=== PATIENT | female | born 1980 | race African-American/Black ===

== ENCOUNTER → 2020-01-02 | Outpatient (CLI) | payer OTHER ==
[~2020-01-02] MED LIST: ABILIFY15 MG PO; AMBIEN5 MG PO; DECADRON4 MG PO; NORVASC 2.5 MG2.5 M1 PO; PROAIR HFA8.5 GM INH; PROTONIX 20 MG20 MG PO; TOPAMAX100 MG PO; XANAX 0.5 MG0.5 M1 PO
[2020-01-02 15:41] LABS: BASOPHILS 1.1 % (0.0-2.0); LYMPHOCYTES 38.3 % (24.0-44.0); MCH 28.8 pg (26.0-34.0); MCHC 33.3 g/dL (28.0-37.0); MCV 86.4 fL (80.0-100.0); MONOCYTES 7.8 % (1.0-8.0); PLATELET COUNT 395 thou/uL (150-400); POLYS 49.8 % (36.0-66.0); RBC 3.82 mil/uL (4.20-5.00); RDW 14.9 % (10.5-14.5)
[2020-01-02 16:05] LABS: ALBUMIN 3.5 g/dL (3.4-5.0); ANION GAP 11 mmol/L (7-16); BUN 9 mg/dL (7-18); CALCIUM 9.5 mg/dL (8.5-10.1); CHLORIDE 106 mmol/L (98-107); CHOLESTEROL 194 mg/dL (<200); CO2 24 mmol/L (21-32); CREATININE 0.9 mg/dL (0.6-1.0); GLUCOSE 77 mg/dL (74-106); HDL CHOLESTEROL 64 mg/dL (>40); LDL CHOLESTEROL 115 mg/dL (<100); POTASSIUM 4.2 mmol/L (3.5-5.1); SGOT 10 U/L (15-37); SGPT 15 U/L (30-65); SODIUM 141 mmol/L (136-145); TOTAL BILIRUBIN < 0.1 mg/dL (0.2-1.0); TOTAL PROTEIN 5.9 g/dL (6.4-8.2); TRIGLYCERIDE 75 mg/dL (<150); VLDL 15 mg/dL (<40)
[2020-01-03 01:07] LABS: GLYCOHEMOGLOBIN (HGB A1C) 6.1 % (4.8-5.6)
== END ==
LOC: LAB 14:30
PROVIDERS: ATTEND Nurse Practitioner
DX: I10 Essential (primary) hypertension (principal); D50.8 Other iron deficiency anemias; E66.01 Morbid (severe) obesity due to excess calories

== ENCOUNTER 2020-01-09 14:49 | Emergency (ER) | payer OTHER ==
[~2020-01-09] VITALS: Ht 152.4 cm; Wt 104.8 kg
[2020-01-09] MEDS ORDERED: PROAIR HFA8.5 GM INH (15:10)
[2020-01-09] MEDS ORDERED: TOPAMAX100 MG PO (15:11)
[2020-01-09] MEDS ORDERED: AMBIEN5 MG PO (15:12)
[2020-01-09] MEDS ORDERED: XANAX 0.5 MG0.5 M1 PO (15:12)
[2020-01-09] MEDS ORDERED: NORVASC 2.5 MG2.5 M1 PO (15:12)
[2020-01-09] MEDS ORDERED: ABILIFY15 MG PO (15:13)
[2020-01-09] MEDS ORDERED: PROTONIX 20 MG20 MG PO (15:13)
[2020-01-09] MEDS ORDERED: DECADRON4 MG PO (17:06)
[2020-01-09 17:25] VITALS: BP 154/105
== END 2020-01-09 17:25 | disposition home or self-care (01) ==
LOC: ER 14:49
DX: R06.2 Wheezing (principal); Z20.828 Contact with and (suspected) exposure to other viral communicable diseases; R06.02 Shortness of breath; R05 Cough; I10 Essential (primary) hypertension; Z79.899 Other long term (current) drug therapy; Z98.84 Bariatric surgery status

== ENCOUNTER → 2020-01-29 | Outpatient (CLI) | payer OTHER | LOC: ULTRA 08:08 | PROVIDERS: ATTEND Nurse Practitioner | DX: N88.8 Other specified noninflammatory disorders of cervix uteri (principal); N92.0 Excessive and frequent menstruation with regular cycle; R19.09 Other intra-abdominal and pelvic swelling, mass and lump ==

== ENCOUNTER → 2020-03-21 | Outpatient (CLI) | payer OTHER | LOC: ULTRA 08:05 | PROVIDERS: ATTEND Obstetrics & Gynecology | DX: N70.11 Chronic salpingitis (principal); N92.6 Irregular menstruation, unspecified ==

== ENCOUNTER → 2020-07-02 | Outpatient (CLI) | payer OTHER ==
[2020-07-02 13:54] LABS: ABSOLUTE NEUTROPHILS 3.9 thou/uL (1.4-8.2); BASOPHILS 1.3 % (0.0-2.0); EOSINOPHILS 1.9 % (0.0-3.0); HEMATOCRIT 26.9 % (37.0-47.0); HEMOGLOBIN 8.2 gm/dL (12.0-15.0); LYMPHOCYTES 36.8 % (24.0-44.0); MCH 21.4 pg (26.0-34.0); MCHC 30.5 g/dL (28.0-37.0); MCV 70.2 fL (80.0-100.0); MONOCYTES 3.9 % (1.0-8.0); PLATELET COUNT 572 thou/uL (150-400); POLYS 56.1 % (36.0-66.0); RBC 3.84 mil/uL (4.20-5.00); RDW 19.3 % (10.5-14.5)
[2020-07-02 14:03] LABS: % SATURATION 4 % (20-39); IRON 17 ug/dL (50-170); TIBC 444 ug/dL (250-450)
[2020-07-02 14:04] LABS: ALBUMIN 3.6 g/dL (3.4-5.0); CALCIUM 8.6 mg/dL (8.5-10.1); POTASSIUM 3.6 mmol/L (3.5-5.1); TOTAL BILIRUBIN 0.2 mg/dL (0.2-1.0); TOTAL PROTEIN 7.2 g/dL (6.4-8.2)
[2020-07-02 14:25] LABS: PLATELET ESTIMATE INCREASED
[2020-07-02 14:26] LABS: ANISOCYTOSIS 2+; HYPOCHROMASIA 2+; MACROCYTES FEW; MICROCYTES 2+; OVALOCYTES 1+; POIKILOCYTOSIS 1+
[2020-07-03 04:06] LABS: GLYCOHEMOGLOBIN (HGB A1C) 5.7 % (4.8-5.6)
== END ==
LOC: LAB 13:20
PROVIDERS: ATTEND Nurse Practitioner
DX: R73.9 Hyperglycemia, unspecified (principal); D50.8 Other iron deficiency anemias

== ENCOUNTER → 2020-09-18 | Outpatient (CLI) | payer OTHER ==
[2020-09-18 10:54] LABS: WBC 7.1 thou/uL (4.0-11.0)
[2020-09-18 10:55] LABS: HEMATOCRIT 25.7 % (37.0-47.0); HEMOGLOBIN 7.3 gm/dL (12.0-15.0); MCH 19.8 pg (26.0-34.0); MCHC 28.3 g/dL (28.0-37.0); MCV 69.8 fL (80.0-100.0); PLATELET COUNT 461 thou/uL (150-400); RBC 3.68 mil/uL (4.20-5.00)
[2020-09-18 11:19] LABS: % SATURATION 5 % (20-39); IRON 18 ug/dL (50-170); TIBC 384 ug/dL (250-450)
[2020-09-18 11:20] LABS: ALBUMIN 3.6 g/dL (3.4-5.0); CALCIUM 8.8 mg/dL (8.5-10.1); CREATININE 1.1 mg/dL (0.6-1.0); POTASSIUM 3.9 mmol/L (3.5-5.1); TOTAL BILIRUBIN 0.2 mg/dL (0.2-1.0); TOTAL PROTEIN 7.2 g/dL (6.4-8.2)
[2020-09-18 12:16] LABS: ABSOLUTE NEUTROPHILS 4.8 thou/uL (1.4-8.2); ANISOCYTOSIS 2+; HYPOCHROMASIA 1+; PLATELET ESTIMATE NORMAL
[2020-09-18 12:17] LABS: MICROCYTES 2+
== END ==
LOC: CAT 09:52
PROVIDERS: ATTEND Nurse Practitioner
DX: K44.9 Diaphragmatic hernia without obstruction or gangrene (principal); D50.8 Other iron deficiency anemias; R19.5 Other fecal abnormalities; J90 Pleural effusion, not elsewhere classified; J98.11 Atelectasis

== ENCOUNTER → 2020-11-13 | Outpatient (CLI) | payer OTHER ==
[~2020-11-13] MED LIST changes: +LEVO-T25 MCG PO
== END ==
LOC: LAB 08:08
PROVIDERS: ATTEND Internal Medicine Gastroenterology
DX: Z01.812 Encounter for preprocedural laboratory examination (principal); Z20.822 Contact with and (suspected) exposure to COVID-19

== ENCOUNTER → 2020-11-18 | Outpatient (CLI) | payer OTHER ==
[~2020-11-18] VITALS: Ht 152.4 cm; Wt 137.0 kg
== END | disposition home or self-care (01) ==
LOC: GI 07:50
PROVIDERS: ATTEND Internal Medicine Gastroenterology
DX: D50.9 Iron deficiency anemia, unspecified (principal); K64.8 Other hemorrhoids; I10 Essential (primary) hypertension; E03.9 Hypothyroidism, unspecified; J45.909 Unspecified asthma, uncomplicated; F32.9 Major depressive disorder, single episode, unspecified; F41.9 Anxiety disorder, unspecified; Z98.890 Other specified postprocedural states; Z98.84 Bariatric surgery status; Z79.899 Other long term (current) drug therapy
CPT/HCPCS: 62110; 62900

== ENCOUNTER → 2021-01-01 | Outpatient (CLI) | payer OTHER | LOC: ULTRA 09:17 | PROVIDERS: ATTEND Obstetrics & Gynecology Gynecologic Oncology | DX: N88.8 Other specified noninflammatory disorders of cervix uteri (principal); R19.00 Intra-abdominal and pelvic swelling, mass and lump, unspecified site ==

== ENCOUNTER 2021-02-04 14:42 | Emergency (ER) | payer OTHER ==
[~2021-02-04] VITALS: Ht 152.4 cm; Wt 140.6 kg
[2021-02-04 15:20] LABS: HEMATOCRIT 39.1 % (37.0-47.0); HEMOGLOBIN 12.9 gm/dL (12.0-15.0); MCH 29.5 pg (26.0-34.0); MCHC 33.1 g/dL (28.0-37.0); MCV 89.1 fL (80.0-100.0); PLATELET COUNT 267 thou/uL (150-400); RBC 4.38 mil/uL (4.20-5.00); RDW 22.6 % (10.5-14.5); WBC 6.1 thou/uL (4.0-11.0)
[2021-02-04 15:28] LABS: ANION GAP 7 mmol/L (7-16); BUN 11 mg/dL (7-18); CALCIUM 8.8 mg/dL (8.5-10.1); CHLORIDE 106 mmol/L (98-107); CO2 25 mmol/L (21-32); GLUCOSE 91 mg/dL (74-106); POTASSIUM 4.6 mmol/L (3.5-5.1); SODIUM 138 mmol/L (136-145)
[2021-02-04 15:38] LABS: ALBUMIN 3.5 g/dL (3.4-5.0); MAGNESIUM 2.1 mg/dL (1.8-2.4); SGOT 10 U/L (15-37); SGPT 10 U/L (14-59); TOTAL BILIRUBIN 0.2 mg/dL (0.2-1.0); TOTAL PROTEIN 7.2 g/dL (6.4-8.2); TROPONIN-I <0.06 ng/mL (<0.06)
--- NOTE | 2021-02-04 15:58 | EKG ---
[place] [address] [employer] [employer] [place] [address] ELECTROCARDIOGRAM REPORT Name: ALLISON BANUELOS Room #: REG [facility]#: [id number] Admission: 02/04/21 Attend Phys: Discharge: Date of : 80 Report #: [id number] [facility] ED Test Date: 2021-02-04 Test Time: 15:05:11 Pat Name: ALLISON BANUELOS Department: Room: Gender: F [employer] Operations Specialist: RUBÉN : 1980 Requested By: Jayson Estrada Order Number: [id number] MD: Yonas Andre Measurements Intervals [place] Rate: 62 P: -4 SD: 202 QRS: 32 QRSD: 100 T: 8 QT: 423 QTc: 430 Interpretive Statements Sinus rhythm Borderline prolonged SD interval Probable left atrial enlargement Borderline T wave abnormalities No previous ECG available for comparison Electronically Signed On 02-04-2021 15:58:18 CDT by Yonas Andre [email or web address] <ELECTRONICALLY SIGNED> By: Yonas Andre MD, [facility] 02/04/21 1558 1505 1505 Yonas Andre MD, FACC /EPI
[2021-02-04 16:11] LABS: URINE BILIRUBIN NEGATIVE (Negative); URINE BLOOD 2+ (Negative); URINE CLARITY CLEAR; URINE COLOR YELLOW; URINE GLUCOSE-RANDOM* NEGATIVE (Negative); URINE KETONES NEGATIVE (Negative); URINE LEUKOCYTES-REFLEX NEGATIVE (Negative); URINE NITRITE-REFLEX NEGATIVE (Negative); URINE PROTEIN (DIPSTICK) NEGATIVE (Negative); URINE UROBILINOGEN 0.2 E.U./dl (0.2-1.0)
[2021-02-04 16:13] LABS: ABSOLUTE NEUTROPHILS 3.5 thou/uL (1.4-8.2); ANISOCYTOSIS 1+; PLATELET ESTIMATE NORMAL
[2021-02-04 16:32] LABS: BACTERIA-REFLEX 1-9 Few /HPF (None Seen); CASTS None Seen /LPF (None Seen); CRYSTALS None Seen /LPF (None Seen); SQUAMOUS 0-3 Few /LPF (0-3); URINE RBC 3-10 Few /HPF (NONE SEEN); URINE WBC-REFLEX 0-5 Rare /HPF (0-5)
[2021-02-04] MEDS ORDERED: ULTRAM 50MG TAB50 MG PO (16:46)
[2021-02-04 16:55] VITALS: BP 171/104
== END 2021-02-04 16:56 | disposition home or self-care (01) ==
LOC: ER 14:42
PROVIDERS: Emergency Medicine
DX: R55 Syncope and collapse (principal); Z79.899 Other long term (current) drug therapy; I10 Essential (primary) hypertension; J45.909 Unspecified asthma, uncomplicated; E03.9 Hypothyroidism, unspecified; K21.9 Gastro-esophageal reflux disease without esophagitis